=== PATIENT | male | born 1970 | race African-American/Black ===

== ENCOUNTER 2017-05-22 22:30 | Emergency (ER) | payer SELFPAY ==
--- NOTE | 2017-05-22 23:08 | CT ---
CT OF THE BRAIN WITHOUT CONTRAST 05/22/17 INDICATION: History of fall with head pain. FINDINGS: There is a laceration and contusion involving the left occipital scalp. No acute infarct, hemorrhage or hydrocephalus is present. Septum pellucidum and third ventricle are midline. The skull appears int act. IMPRESSION: No acute intracranial abnormality. Occipital scalp laceration. POS: [facility]
--- NOTE | 2017-05-22 23:14 | CT ---
CT OF THE FACE WITHOUT CONTRAST 05/22/17 INDICATION: History of fall with head and facial pain. Patient also has left facial swelling over the lower jaw. FINDINGS: The mandible is intact. There is prominent periapical lucency surrounding the left posterior mandibul ar molars with associated dental caries. There is soft tissue swelling involving the left masseter. N o acute fracture is evident. There is periapical lucency involving a left central maxillary incisor. There is a 1.8 cm right frontal scalp lipoma. IMPRESSION: 1. No acute fracture demonstrated. 2. Prominent periapical lucency and dental caries involving the left posterior mandibular molars with associated adjacent facial swelling is suspicious for dental disease with associated left facia l cellulitis. 3. There is prominent periapical lucency involving the left central maxillary incisor. POS: [facility]
== END 2017-05-22 23:49 | disposition home or self-care (01) ==
LOC: ERS 22:30
DX: S01.01XA Laceration without foreign body of scalp, initial encounter (principal); K04.7 Periapical abscess without sinus; F17.210 Nicotine dependence, cigarettes, uncomplicated; W18.30XA Fall on same level, unspecified, initial encounter
CPT/HCPCS: 70450; 70486; 99406

== ENCOUNTER 2020-11-17 22:38 | Emergency (ER) | payer SELFPAY | END 2020-11-18 02:13 | disposition left against medical advice (07) | LOC: ERS 22:38 | DX: Z53.21 Procedure and treatment not carried out due to patient leaving prior to being seen by health care provider (principal) ==